=== PATIENT | male | born 1940 | race Two or more races ===

== ENCOUNTER 2023-02-25 16:04 | Inpatient (IN) | payer BC ==
[~2023-02-25] VITALS: Ht 157.5 cm; Wt 90.7 kg
[~2023-02-25 16:04] MED LIST: SOD FERRIC GLUC 125 MG in IV NS 0.9% 100 ML IV SCH
[2023-02-25 17:49] LABS: BASOPHILS % (AUTO) 0.2 % (0.0-2.0); EOSINOPHILS # (AUTO) 0.2 K/uL (0.0-0.7); EOSINOPHILS % (AUTO) 2.9 % (0.0-6.0); LYMPHOCYTES # (AUTO) 0.8 K/uL (0.8-4.8); MEAN CORPUSCULAR HEMOGLOBIN 33 PG (26.0-33.0); MEAN CORPUSCULAR HGB CONC 33 g/dl (31.0-36.0); MEAN CORPUSCULAR VOLUME 102 fL (80-96); MONOCYTES # (AUTO) 0.4 K/uL (0.1-1.30); MONOCYTES % (AUTO) 5.6 % (2.0-12.0); NEUTROPHILS # (AUTO) 6.2 K/uL (1.8-8.9); NEUTROPHILS % (AUTO) 80.3 % (43.0-81.0); PLATELET COUNT (AUTO) 227 K/uL (150-450); RED CELL DISTRIBUTION WIDTH 15.1 % (11.5-15.0); WHITE BLOOD COUNT (AUTO) 7.7 K/uL (4.3-11.0)
[2023-02-25] MEDS ORDERED: MULT-213 PO (17:58)
[2023-02-25] MEDS ORDERED: LOSA100T31 PO (17:58)
[2023-02-25] MEDS ORDERED: FINA5TAB11 PO (17:58)
[2023-02-25] MEDS ORDERED: OXYM15MI4 NS (17:58)
[2023-02-25] MEDS ORDERED: ATOR40TA PO (17:58)
[2023-02-25] MEDS ORDERED: FERR325T28 PO (17:58)
[2023-02-25] MEDS ORDERED: PANT40TA49 PO (17:58)
[2023-02-25] MEDS ORDERED: OXYB10TA4 PO (17:58)
[2023-02-25] MEDS ORDERED: MELA5TAB PO (17:58)
[2023-02-25 18:02] LABS: INR 0.98 (0.91-1.10); PROTHROMBIN TIME 10.3 SECS (9.2-11.1)
[2023-02-25 18:08] LABS: RED BLOOD CELL COUNT(AUTO) 1.99 MIL/uL (4.5-6.0)
[2023-02-25 18:10] LABS: HEMOGLOBIN 6.7 g/dL (13.5-17.5)
[2023-02-25 18:11] LABS: HEMATOCRIT 20 % (39-51)
[2023-02-25 18:18] LABS: CALCIUM, SERUM 8.7 mg/dL (8.5-10.1); CARBON DIOXIDE 23 mmol/L (21-32); CHLORIDE 109 mmol/L (98-107); CREATININE 0.7 mg/dL (0.6-1.3); GLUCOSE 108 mg/dL (74-106); POTASSIUM 3.9 mmol/L (3.5-5.1); SODIUM SERUM 140 mmol/L (136-145); UREA NITROGEN, BLOOD 17 mg/dL (7-18)
[2023-02-25 18:25] LABS: ALANINE AMINOTRANSFERASE 28 U/L (12-78); ALBUMIN 3.2 g/dL (3.4-5.0); ALKALINE PHOSPHATASE 72 U/L (46-116); ASPARTATE AMINOTRANSFERASE 40 U/L (15-37); BILIRUBIN,DIRECT 0.1 mg/dL (0.0-0.2); BILIRUBIN,TOTAL 0.1 mg/dL (0.2-1.0); LIPASE 115 U/L (73-393); TOTAL PROTEIN, SERUM 6.3 g/dL (6.4-8.2)
[2023-02-25 18:58] LABS: ANISOCYTOSIS 1+; BAND % (MANUAL) 2 % (0.0-5.0); EOSINOPHILS % (MANUAL) 2 % (0-4); LYMPHOCYTES % (MANUAL) 11 % (16-48); MONOCYTES % (MANUAL) 5 % (0-11.0); NEUTROPHILS % (MANUAL) 80 (42-76)
[2023-02-25 18:59] LABS: PLATELET ESTIMATE ADEQUATE
[2023-02-25 23:39] VITALS: O2SAT 97
[2023-02-26] MEDS ORDERED: ONDANSETRON HCL/PF 4 MG/2 ML VIAL IVP PRN
[2023-02-26] MEDS ORDERED: Z GUARD REMEDY 4 OZ OINT TP PRN
[2023-02-26] MEDS ORDERED: ACETAMINOPHEN 325 MG TABLET PO PRN
[2023-02-26 01:25] VITALS: BP 129/51; TEMP 99; O2SAT 100
[2023-02-26 04:46] LABS: APPEARANCE,URINE CLEAR (CLEAR); BILIRUBIN,URINE NEGATIVE (NEGATIVE); BLOOD, URINE NEGATIVE Ery/uL (NEGATIVE); COLOR,URINE YELLOW (YELLOW); KETONES,URINE NEGATIVE (NEGATIVE); LEUKOCYTE ESTERASE ,URINE NEGATIVE (NEGATIVE); NITRITE, URINE NEGATIVE (NEGATIVE); PH,URINE 6.5 (5.0-8.0); PROTEIN,URINE NEGATIVE (NEGATIVE); UGLUCOSE NEGATIVE (NEGATIVE); UROBILINOGEN,URINE 0.2 EU/dL (0.2)
[2023-02-26 06:57] LABS: BASOPHILS % (AUTO) 0.3 % (0.0-2.0); EOSINOPHILS # (AUTO) 0.5 K/uL (0.0-0.7); EOSINOPHILS % (AUTO) 6.9 % (0.0-6.0); HEMATOCRIT 26 % (39-51); HEMOGLOBIN 8.8 g/dL (13.5-17.5); LYMPHOCYTES # (AUTO) 1.4 K/uL (0.8-4.8); LYMPHOCYTES % (AUTO) 20.1 % (20.0-44.0); MEAN CORPUSCULAR HEMOGLOBIN 33 PG (26.0-33.0); MEAN CORPUSCULAR HGB CONC 34 g/dl (31.0-36.0); MEAN CORPUSCULAR VOLUME 99 fL (80-96); MONOCYTES # (AUTO) 0.6 K/uL (0.1-1.30); NEUTROPHILS # (AUTO) 4.6 K/uL (1.8-8.9); NEUTROPHILS % (AUTO) 64.7 % (43.0-81.0); PLATELET COUNT (AUTO) 226 K/uL (150-450); RED BLOOD CELL COUNT(AUTO) 2.64 MIL/uL (4.5-6.0); RED CELL DISTRIBUTION WIDTH 15.8 % (11.5-15.0); WHITE BLOOD COUNT (AUTO) 7.1 K/uL (4.3-11.0)
[2023-02-26 07:12] LABS: CALCIUM, SERUM 8.7 mg/dL (8.5-10.1); CREATININE 0.7 mg/dL (0.6-1.3); MAGNESIUM 2.1 mg/dL (1.8-2.4); PHOSPHORUS 3.9 mg/dL (2.5-4.9); POTASSIUM 3.7 mmol/L (3.5-5.1)
[2023-02-26] MEDS ORDERED: PANTOPRAZOLE 40 MG TABLET.DR PO SCH (07:30)
[2023-02-26 08:37] LABS: THYROID STIMULATING HORMONE 3.74 uIU/mL (0.358-3.74)
[2023-02-26 09:00] VITALS: BP 131/65; TEMP 97.7; O2SAT 97
[2023-02-26] MEDS: LOSARTAN POTASSIUM 50 MG TABLET PO SCH (09:30)
[2023-02-26] MEDS: MULTIVIT W/MINERALS 1 TAB TABLET PO SCH (09:30)
[2023-02-26] MEDS: FINASTERIDE (5 MG) 5 MG TABLET PO SCH (09:31)
[2023-02-26] MEDS: OXYBUTYNIN CHLORIDE ER 5 MG TAB PO SCH (09:31)
[2023-02-26 12:15] LABS: HEMOGLOBIN 8.8 g/dL (13.5-17.5)
[2023-02-26 12:43] LABS: OCCULT BLOOD STOOL POSITIVE (NEGATIVE)
[2023-02-26] MEDS: SOD FERRIC GLUC 125 MG in IV NS 0.9% 100 ML IV SCH (15:00)
[2023-02-26 16:00] VITALS: BP 125/62; TEMP 97.6; O2SAT 95
[2023-02-26 19:00] VITALS: BP 131/64; TEMP 98.1; O2SAT 97
[2023-02-26 19:07] LABS: HEMOGLOBIN 8.8 g/dL (13.5-17.5)
[2023-02-26] MEDS ORDERED: PEG 3350/NA SULF,BICARB,CL/KCL 4,000 ML BOTTLE PO ONE (19:30)
[2023-02-26] MEDS: PANTOPRAZOLE 40 MG VIAL IV SCH (21:32)
[2023-02-26] MEDS: ATORVASTATIN 40 MG TABLET PO SCH (21:36)
[2023-02-27 07:34] LABS: BASOPHILS % (AUTO) 0.1 % (0.0-2.0); EOSINOPHILS # (AUTO) 0.3 K/uL (0.0-0.7); EOSINOPHILS % (AUTO) 2.8 % (0.0-6.0); HEMATOCRIT 25 % (39-51); HEMOGLOBIN 8.2 g/dL (13.5-17.5); LYMPHOCYTES % (AUTO) 9.3 % (20.0-44.0); MEAN CORPUSCULAR HEMOGLOBIN 33 PG (26.0-33.0); MEAN CORPUSCULAR HGB CONC 33 g/dl (31.0-36.0); MEAN CORPUSCULAR VOLUME 99 fL (80-96); MONOCYTES # (AUTO) 0.7 K/uL (0.1-1.30); MONOCYTES % (AUTO) 6.9 % (2.0-12.0); NEUTROPHILS # (AUTO) 8.7 K/uL (1.8-8.9); NEUTROPHILS % (AUTO) 80.9 % (43.0-81.0); PLATELET COUNT (AUTO) 264 K/uL (150-450); RED BLOOD CELL COUNT(AUTO) 2.49 MIL/uL (4.5-6.0); RED CELL DISTRIBUTION WIDTH 15.6 % (11.5-15.0); WHITE BLOOD COUNT (AUTO) 10.7 K/uL (4.3-11.0)
[2023-02-27 07:44] LABS: CALCIUM, SERUM 8.4 mg/dL (8.5-10.1); CARBON DIOXIDE 27 mmol/L (21-32); CHLORIDE 109 mmol/L (98-107); CREATININE 0.7 mg/dL (0.6-1.3); GLUCOSE 91 mg/dL (74-106); POTASSIUM 3.8 mmol/L (3.5-5.1); SODIUM SERUM 143 mmol/L (136-145); UREA NITROGEN, BLOOD 14 mg/dL (7-18)
[2023-02-27 08:00] VITALS: BP 161/71; TEMP 97.8; O2SAT 98
[2023-02-27] MEDS: PANTOPRAZOLE 40 MG VIAL IV SCH ×2 (08:48→22:37)
[2023-02-27] MEDS ORDERED: ANESTHESIA TRAY IN PYXIS 1 EA TRAY MC ONE (10:31)
[2023-02-27] MEDS: OXYBUTYNIN CHLORIDE ER 5 MG TAB PO SCH (14:39)
[2023-02-27] MEDS: FINASTERIDE (5 MG) 5 MG TABLET PO SCH (14:40)
[2023-02-27] MEDS: LOSARTAN POTASSIUM 50 MG TABLET PO SCH (14:40)
[2023-02-27] MEDS: MULTIVIT W/MINERALS 1 TAB TABLET PO SCH (14:40)
[2023-02-27 16:00] VITALS: BP 152/80; TEMP 98.4; O2SAT 94
[2023-02-27] MEDS: SOD FERRIC GLUC 125 MG in IV NS 0.9% 100 ML IV SCH (16:20)
[2023-02-27 20:00] VITALS: BP 137/66; TEMP 99.9; O2SAT 94
[2023-02-27] MEDS: ATORVASTATIN 40 MG TABLET PO SCH (22:37)
[2023-02-28] MEDS: PANTOPRAZOLE 40 MG VIAL IV SCH ×2 (10:08→21:18)
[2023-02-28] MEDS: MULTIVIT W/MINERALS 1 TAB TABLET PO SCH (10:08)
[2023-02-28] MEDS: LOSARTAN POTASSIUM 50 MG TABLET PO SCH (10:08)
[2023-02-28] MEDS: FINASTERIDE (5 MG) 5 MG TABLET PO SCH (10:08)
[2023-02-28] MEDS: OXYBUTYNIN CHLORIDE ER 5 MG TAB PO SCH (10:09)
[2023-02-28] MEDS ORDERED: PANT40TA2 PO (10:27)
[2023-02-28 11:08] LABS: CALCIUM, SERUM 8.7 mg/dL (8.5-10.1); CREATININE 0.7 mg/dL (0.6-1.3); POTASSIUM 3.3 mmol/L (3.5-5.1)
[2023-02-28 11:15] LABS: CHOLESTEROL 92 mg/dL (<200); HDL CHOLESTEROL 53 mg/dL (40-60); LDL 36 mg/dL (0-99); TRIGLYCERIDES 58 mg/dL (30-150)
[2023-02-28 11:20] LABS: EOSINOPHILS # (AUTO) 0.1 K/uL (0.0-0.7); EOSINOPHILS % (AUTO) 0.7 % (0.0-6.0); HEMATOCRIT 27 % (39-51); HEMOGLOBIN 8.9 g/dL (13.5-17.5); LYMPHOCYTES # (AUTO) 0.9 K/uL (0.8-4.8); LYMPHOCYTES % (AUTO) 7.6 % (20.0-44.0); MEAN CORPUSCULAR HEMOGLOBIN 33 PG (26.0-33.0); MEAN CORPUSCULAR HGB CONC 33 g/dl (31.0-36.0); MEAN CORPUSCULAR VOLUME 100 fL (80-96); MONOCYTES # (AUTO) 0.9 K/uL (0.1-1.30); MONOCYTES % (AUTO) 7.3 % (2.0-12.0); NEUTROPHILS % (AUTO) 84.4 % (43.0-81.0); PLATELET COUNT (AUTO) 280 K/uL (150-450); RED CELL DISTRIBUTION WIDTH 16.6 % (11.5-15.0); WHITE BLOOD COUNT (AUTO) 11.8 K/uL (4.3-11.0)
[2023-02-28] MEDS: SOD FERRIC GLUC 125 MG in IV NS 0.9% 100 ML IV SCH (15:34)
[2023-02-28 20:38] VITALS: BP 129/57; TEMP 99.3; O2SAT 96
[2023-02-28] MEDS: ATORVASTATIN 40 MG TABLET PO SCH (21:18)
[2023-02-28] MEDS: MAGNESIUM HYDROXIDE 30 ML UDC PO PRN (22:33)
[2023-03-01 07:30] VITALS: BP 126/62; TEMP 98.4; O2SAT 96
[2023-03-01] MEDS: PANTOPRAZOLE 40 MG VIAL IV SCH (08:16)
[2023-03-01 08:17] VITALS: BP 126/62
[2023-03-01] MEDS: OXYBUTYNIN CHLORIDE ER 5 MG TAB PO SCH (08:17)
[2023-03-01] MEDS: LOSARTAN POTASSIUM 50 MG TABLET PO SCH (08:17)
[2023-03-01] MEDS: MULTIVIT W/MINERALS 1 TAB TABLET PO SCH (08:17)
[2023-03-01] MEDS: FINASTERIDE (5 MG) 5 MG TABLET PO SCH (08:35)
[2023-03-01] MEDS ORDERED: POTASSIUM CHLORIDE 20 MEQ TAB.PRT.SR PO ONE ×2 (09:00→11:00)
[2023-03-01] MEDS: MAGNESIUM HYDROXIDE 30 ML UDC PO PRN (12:26)
[2023-03-01] MEDS ORDERED: PANTOPRAZOLE 40 MG/PACK PACK PO SCH (21:00)
== END 2023-03-01 13:00 | disposition home or self-care (01) | DRG 378 ==
LOC: ER 16:30 → TELE 02-26 00:19 → MED 02-26 01:15
PROVIDERS: ADMIT Nurse Practitioner Family; ATTEND Nurse Practitioner Acute Care
PROC: 30233N1 Transfusion of Nonautologous Red Blood Cells into Peripheral Vein, Percutaneous Approach (ICD-10-PCS; principal; 2023-02-26)
PROC: 05H933Z Insertion of Infusion Device into Right Brachial Vein, Percutaneous Approach (ICD-10-PCS; 2023-02-27)
PROC: 0DB98ZX Excision of Duodenum, Via Natural or Artificial Opening Endoscopic, Diagnostic (ICD-10-PCS; 2023-02-27)
PROC: 0DJD8ZZ Inspection of Lower Intestinal Tract, Via Natural or Artificial Opening Endoscopic (ICD-10-PCS; 2023-02-27)
DX: K29.71 Gastritis, unspecified, with bleeding (principal); E44.1 Mild protein-calorie malnutrition; N40.0 Benign prostatic hyperplasia without lower urinary tract symptoms; E88.09 Other disorders of plasma-protein metabolism, not elsewhere classified; K57.90 Diverticulosis of intestine, part unspecified, without perforation or abscess without bleeding; K64.8 Other hemorrhoids; Z87.19 Personal history of other diseases of the digestive system; Z88.0 Allergy status to penicillin; Z90.49 Acquired absence of other specified parts of digestive tract; I10 Essential (primary) hypertension; Z79.899 Other long term (current) drug therapy; D53.9 Nutritional anemia, unspecified; E78.5 Hyperlipidemia, unspecified; K21.9 Gastro-esophageal reflux disease without esophagitis; E66.9 Obesity, unspecified; Z68.36 Body mass index [BMI] 36.0-36.9, adult; E87.6 Hypokalemia; M79.89 Other specified soft tissue disorders
CPT/HCPCS: 36415; 71045-TC; 80048-TC; 80061-TC; 80076-TC; 82272-TC; 82607-TC; 83690-TC; 83735-TC; 84100-TC; 84443-TC; 84484-TC; 85025-TC; 85027-TC; 85730-TC; 86850-TC; 88305-TC; 88313-TC; 88342; 93307-TC; 97116-TC; A4223; C9113; G0378; J2704; J2916; J3490; J7030; J7040; P9016